=== PATIENT | male | born 1975 | race Caucasian/White ===

== ENCOUNTER 2020-07-27 00:37 | Inpatient (IN) | payer BC, SELFPAY ==
[2020-07-27] VITALS (80 sets, daily range): BP systolic 103–157; BP diastolic 57–97; PULSE 48–78; RESP 0–29; TEMP 36.2–36.7; O2SAT 91–99; BMI 39.5; BMI 40.2
--- NOTE | 2020-07-27 00:40 | XR_ITS ---
WS: [id number] Portable AP upright chest, 07/27/2020 Clinical Data: cp Comparison: PA and lateral chest, 05/25/2015. Findings: No nodules, masses or effusions are seen. The heart is normal. The pulmonary vascularity is not increased. No pneumonia or pneumothorax is seen. XR/XR chest 1V portable [id number] Impression: Negative chest.
--- NOTE | 2020-07-27 00:40 | ECG_ITS ---
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 Measurements Intervals [place] Rate: 52 P: 4 [place]: 176 QRS: 0 QRSD: 98 T: 7 QT: 412 QTc: 386 Interpretive Statements SINUS BRADYCARDIA Compared to ECG 07/27/2020 00:43:57 Sinus rhythm no longer present Myocardial infarct finding no longer present ST (T wave) deviation no longer present Electronically Signed On 07-27-2020 20:47:41 EDUCATION REPORTER by Alison Frank M.D. [id number]
--- NOTE | 2020-07-27 00:50 | W.ED.CHESTPA ---
HPI - Chest Pain General: Chief Complaint: Chest Pain Stated Complaint: chest pain Time Seen by Provider: 07/27/20 00:39 Source: patient and EMS Mode of arrival: EMS Limitations: no limitations History of Present Illness: HPI narrative: 45-year-old male has a history of diabetes high blood pressure and high cholesterol states to having chest pain at 10:00. He states that he has been having intermittent pain since then. Patient states his pain is currently an 8 out of 10 and is sharp in the center of his chest. EKG here does show ST elevation. Patient was given aspirin in route and does not have an IV at this time. MD complaint: chest pain Associated symptoms: Deny abdominal pain, dyspnea, fever(s), nausea or vomiting Review of Systems Const: Denies: fever(s), chills, body aches or change in appetite Eyes: Denies: blurry vision or eye discomfort ENMT: Denies: throat pain or dental pain Card: Reports: chest pain Resp: Denies: dyspnea GI: Denies: abdominal pain, nausea, vomiting or diarrhea : Denies: dysuria Musc: Denies: neck pain or back pain Skin/Breast: Denies: rash Neuro: Denies: headache(s) Psych: Denies: depression Joaquin/Lymph: Denies: easy bruising All/Imm: Denies: urticaria Physical Exam Const: COMMON NORMALS: patient oriented x3 and healthy appearing GENERAL APPEARANCE: in distress HENMT: COMMON NORMALS: normocephalic and atraumatic HEAD & SCALP: normocephalic and atraumatic Eye: COMMON NORMALS: Equal, round and reactive pupils present and EOMs intact bilaterally PUPIL: Yes Equal, round and reactive pupils present Neck/C-Spine: COMMON NORMALS: full ROM and supple Chest: COMMONS NORMALS: normal inspection of the chest and normal palpation of entire chest wall Resp: COMMON NORMALS: normal respiratory effort, No retractions, No use of accessory muscles and clear to auscultation bilaterally AUSCULTATION: clear to auscultation bilaterally Cardio: COMMON NORMALS: regular rate, regular rhythm and No murmurs present (Cardio) RATE: regular rate RHYTHM: regular rhythm GI: COMMON NORMALS: Normal to inspection, nondistended, normoactive bowel sounds present, Soft to palpation, non-tender and no masses PALPATION: Yes Soft to palpation Extremity: COMMON NORMALS: normal to inspection and full ROM Neuro: COMMON NORMALS: patient oriented x3, moves all extremities and no focal motor deficits Psych: COMMON NORMALS: mental status grossly normal, Normal thought process present and cooperative THOUGHT PROCESS: Normal thought process present Skin: COMMON NORMALS: no rashes or lesions noted and no wounds GENERAL SKIN EXAM: no rashes or lesions noted Course Vital Signs: Vital signs: Vital Signs Pulse Rate 73 07/27/20 00:59 Respiratory Rate 21 H 07/27/20 00:59 Blood Pressure 157/93 07/27/20 00:59 Pulse Oximetry 99 07/27/20 00:59 MDM - Chest Pain MDM Narrative: Medical decision making narrative: Gerald presents here with ST elevation myocardial infarction. Patient's pain here was relieved with nitro. 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 Patient was given heparin and Plavix. Lab Data: Labs: Lab Results 07/27/20 Range/Units 00:47 WBC 7.6 (4.0-10.0) 10^3/ uL RBC 5.46 H (4.1-5.3) 10^6/u L Hgb 16.8 H (11.7-16.6) g/dL Hct 48.9 (42.0-52.0) % MCV 89.6 (80-94) fL MCH 30.8 (28.0-34.0) pg MCHC 34.4 (30.0-36.0) g/dL RDW 11.8 L (12.1-15.1) % Plt Count 247 (130-400) 10^3/c mm MPV 11.3 H (7.4-10.4) fL Neut % (Auto) 50.1 % Lymph % (Auto) 38.0 % [place] % (Auto) 8.5 % Eos % (Auto) 2.6 % Baso % (Auto) 0.5 % Neut # (Auto) 3.78 (1.8-7.7) 10^3/u L Lymph # (Auto) 2.9 (0.8-4.8) 10^3/u L [place] # (Auto) 0.6 (0.2-0.9) 10^3/u L Eos # (Auto) 0.2 (0.0-0.8) 10^3/u L Baso # (Auto) 0.0 (0.0-0.1) 10^3/u L Nucleated RBC % (a uto) 0 % Nucleated RBCs # 0.0 /100WBC Imaging Data^: CXR: Attestation: I personally reviewed and interpreted this imaging study as follows: My impression: no acute abnormality EKG Data^: EKG 1: Attestation: I personally reviewed and interpreted this EKG as follows: EKG interpretation date: 07/27/20 EKG interpretation time: 00:43 Interpretation: nsr hr 75 st elevation OK qrs 105 qtc 395 Critical Care Time Critical Care Time: Critical Care Time: Yes Total Critical Care Time: 35 Attestation: This case had a high probability of a clinically significant, sudden, or life threatening deterioration of this patient's condition which required my full and direct attention, intervention and personal management. Discharge Plan Discharge Patient Disposition: Admitted As Inpatient Clinical Impression: ST elevation (STEMI) myocardial infarction Qualifiers: Involved coronary artery: unspecified coronary artery Qualified Code(s): I21.3 - ST elevation (STEMI) myocardial infarction of unspecified site Condition: Stable Coding Level of Care Code ED Revenue Enforcement Collection Agent for Chg Fwd Exam Comprehensive
[2020-07-27] MEDS: sodium chloride 0.9% 1,000 ML 999 ML IV (00:51)
[2020-07-27] MEDS: ondansetron 2 mg/ML SDV 2 mL 4 MG IVP (00:52)
[2020-07-27] MEDS: clopidogrel 300 mg Tablet PO ×2 (00:52→01:16)
[2020-07-27] MEDS: morphine 4 mg/mL SDV 1 mL IVP (00:54)
[2020-07-27] MEDS: heparin 5,000 unit/mL INJ 1 mL 4000 UNIT IVP (00:55)
[2020-07-27 00:56] LABS: Basophils % 0.5 %; Eosinophils # 0.2 10^3/uL (0.0-0.8); Eosinophils % 2.6 %; Hematocrit 48.9 % (42.0-52.0); Hemoglobin 16.8 g/dL (11.7-16.6); Lymphocytes # 2.9 10^3/uL (0.8-4.8); Mean Corpuscular HGB Conc 34.4 g/dL (30.0-36.0); Mean Corpuscular Hemoglobin 30.8 pg (28.0-34.0); Mean Corpuscular Volume 89.6 fL (80-94); Mean Platelet Volume 11.3 fL (7.4-10.4); Monocytes # 0.6 10^3/uL (0.2-0.9); Monocytes % 8.5 %; Neutrophils # 3.78 10^3/uL (1.8-7.7); Neutrophils % 50.1 %; Nucleated Red Blood Cells % 0 %; Platelet Count 247 10^3/cmm (130-400); Red Blood Count 5.46 10^6/uL (4.1-5.3); Red Cell Distribution Width 11.8 % (12.1-15.1); White Blood Count 7.6 10^3/uL (4.0-10.0)
[2020-07-27] MEDS: nitroglycerin 0.4 mg sublingual Tablet SUBLINGUAL (00:56)
--- NOTE | 2020-07-27 01:14 | XACV_ITS ---
Ht: 168 cm Wt: 113 kg BSA: 2.35 m2 Gender: Male : 1975 Exam Priority: Routine Procedure(s): Procedure Description: Diagnostic procedure Procedure Description: Primary percutaneous coronary intervention Procedure Description: Coronary angiogram Diagnostic Cath Status: Emergency Diagnostic Findings * LM has luminal irregularities. * CX gives rise to a large OM branch. No significant stenosis is seen in left circumflex artery system.. * RCA has luminal irregularities but no significant stenosis.. * LAD is a large vessel. * It has proximal to mid thrombotic occlusion which is culprit lesion for the acute ST elevation MA. This is right before LAD gives off a large diagonal branch. * P * roximal Left Anterior Descending Coronary Artery: Severe 100% stenosis, SAMUEL: 1 flow. PCI Status: Emergency PCI Indication: STEMI - Immediate PCI for STEMI Interventional Findings * After diagnostic pictures were taken, we attempted to engage left main artery using XB 3.5 guide catheter from right radial access. After significant difficulty, we switched access site to right femoral artery. Left main artery was engaged using XB 3.0 guide catheter. Initially we advanced 0.014 run-through guidewire and attempted to cross the lesion. However the wire was preferentially going into the large diagonal branch right after the thrombotic occlusion. After balloon inflation with 2.25 x 12 mm semicompliant balloon, we lost flow to the LAD. We used a Fielder XT guidewire to cross the thrombotic occlusion and put it in distal LAD. This was followed by placement of a 3.0 x 18 mm resolute Berkley drug-eluting stent to proximal to mid LAD. We then postdilated the stent using a 3.0 x 6 mm NC balloon. At this time final angiogram was performed that showed excellent stent expansion, SAMUEL-3 flow and no residual stenosis. Guidewire and guide catheter were removed. Sheath was sutured in place for removal later.. * Proximal Left Anterior Descending Coronary Artery: 100% stenosis treated with CHI SPRINTER [id number] BALLOON, TREK 2.25X12 RX BALLOON, CHI García BERKLEY 3.0X18 MADISON, and CHI CONTRERAS EUPHORA RX 3.65G36FI BALLOON. 0% residual stenosis, SAMUEL: 3 flow. Conclusions 1. Thrombotic occlusion of proximal to mid LAD. 2. Proximal Left Anterior Descending Coronary Artery was treated with three Balloon and Drug Eluting Stent. Recommendations * Admit to ICU. * Aspirin and Plavix for at least 1 year. * Echocardiogram. * High intensity statin therapy. * Beta-cayla and lisinopril. * We will consult hospitalist team for management of hyperglycemia. * Aggressive risk factor modification. Interventional RX Recommendation: PCI w/o planned CABG Diagnostic RX Recommendation: PCI w/o planned CABG Anticoagulation: Heparin, Tirofiban Pressures Phase:Rest AO : 193 / 105 ( 141 ) @ 8:13:00 PM 124 / 70 ( 95 ) @ 8:50:00 PM 128 / 66 ( 94 ) @ 8:50:00 PM LV : 139 / -2 / @ 8:50:00 PM 138 / -2 / @ 8:50:00 PM Valves Phase:DefaultPhase AV : 10.0 @ 3:05:12 AM 10.0 @ 3:05:12 AM AV Mean Gradient: 12.0 @ 3:05:12 AM Clinical Evaluation EBL: 5mL-10mL Procedural Details Identified patient by full name and date of as verbalized by the patient/guarantor. Does the consent match the physician's order: N/A Emergent. Accurate & Complete Informed Consent: N/A Emergent. Inpatient/Outpatient History & Physical on Chart: N/A Emergent. If H&P is completed, is and addenduem needed: N/A Emergent; If yes, is the addendum complete: N/A Emergent. Pre-op teaching completed and patient verbalized understanding. The risks, benefits, and alternatives of sedation and/or procedure were discussed by physician. The patient agrees to continue. Procedure started. Current diagnosis: STEMI. Physician arrived. Physician scrubbed in. Immediate Pre-Procedure Time Out. Correct Patient: Yes; Correct Procedure: Yes; Correct Site: Yes; Correct Patient Position: Yes; Correct Supplies: Yes; Dried Flammable Prep: N/A Emergent; Blood Products Available: N/A Emergent;. Lidocaine 1% infiltrated to the right radial. Arterial access obtained. 6 barbadian XB 3.5 guide catheter was inserted over the wire. IV Site on Arrival: 18 gauge in the right anticubital. IV Site on Arrival: 20 gauge in the left anticubital. Oxygen started at 2liters/min via nasal canula. right radial was prepped with chloroprep then draped in the usual sterile fashion. Baseline sample Acquired. HR: 65 BPM. Guide catheter out. right groin was prepped with chloroprep then draped in the usual sterile fashion. Switching to right groin due to difficult anatomy. Lidocaine 1% infiltrated to the right groin. Arterial access obtained with micropuncture set. 6 barbadian XB 3.5 guide catheter was inserted over the wire. Guide catheter out. 6 barbadian XB 3 guide catheter was inserted over the wire. [place] guidewire was advanced through the guide catheter to lesion in the prox LAD. Runthrough guidewire was advanced through the guide catheter to lesion in the prox LAD. Inventory is TR 180cm Runthrough NS extra floppy 0.014 wire. Balloon Dilation Catheter inserted through the guide catheter for support [id number] Sprinter Legend Lot#[id number]. Balloon inserted to lesion in the prox LAD. Inflation number : 1 A MDT SPRINTER [id number] BALLOON was prepped and advanced across the Prox LAD , then inflated to 14 RAS for 0:10 seconds. Inflation number: 2 The MDT SPRINTER 1.57K74PD BALLOON was reinflated across the Prox LAD, to 14 RAS for 0:10 seconds. Balloon out. Runthrough guidewire was advanced through the guide catheter to lesion in the prox LAD. Inflation number : 3 A AB TREK 2.25X12 RX BALLOON was prepped and advanced across the Prox LAD , then inflated to 12 RAS for 0:10 seconds. Balloon out. Runthrough wire removed. Fielder XT guidewire was advanced through the guide catheter to the lesion of the prox LAD. Nitro drip increased to 20mcg/min per Tay Espinal. Fielder wire removed. Trek 2.25x12 Balloon reinserted into prox LAD. Inflation number: 4 The AB TREK 2.25X12 RX BALLOON was reinflated across the Prox LAD, to 12 RAS for 0:07 seconds. Inflation number: 6 The AB TREK 2.25X12 RX BALLOON was reinflated across the Prox LAD, to 12 RAS for 0:08 seconds. nirto drip increased to 30mcg/min per Tay Espinal. Balloon out. Fielder wire inserted. Trek 2.25x12 Balloon reinserted into prox LAD. Inflation number: 8 The AB TREK 2.25X12 RX BALLOON was reinflated across the Prox LAD, to 14 RAS for 0:18 seconds. Balloon out. Trek 2.25x12 Balloon reinserted into prox LAD. Inflation number: 9 The AB TREK 2.25X12 RX BALLOON was reinflated across the Prox LAD, to 14 RAS for 0:08 seconds. Balloon out. Inflation Number : 8 A MDT R BERKLYE 3.0X18 MADISON -Lot Number# [id number] Exp date: 03/03/2022 was prepped and advanced across the Prox LAD. The stent was deployed at 14 RAS for 0:26 seconds. Family updated. Inflation number : 9 A MDT NC EUPHORA RX [id number] BALLOON was prepped and advanced across the Prox LAD , then inflated to 16 RAS for 0:21 seconds. Nitro drip is now running 20mcg/min. Inflation number: 10 The MDT NC EUPHORA RX 3.96O05KB BALLOON was reinflated across the Prox LAD, to 16 RAS for 0:16 seconds. Balloon and wire out. Nitro drip has been turned off at this time. guide catheter removed. Drawing an ACT. A CRD 5F JR4 Diagnostic Catheter was advanced over the wire and used for. A CRD 5F JR4 Diagnostic Catheter was advanced over the wire and used for Right coronary angiography. A 5 barbadian JR4 catheter in over wire. EDP Sample taken: LV 139/-2,23; HR: 67 BPM; SpO2: 99%. Pullback taken: LV 138/-3,25; AO 124/70(95); Mean: 12mmHg, Peak to Peak: 10mmHg, SEP: 22sec/min; HR: 73 BPM; SpO2: 98%. ACT results is 114. Catheter out. TR band placed. Hemostasis obtained. Sheath(s) sutured into position with 2-0 silk and sterile 4x4's and Op-site applied over the site. No oozing or signs and symptoms of hematoma noted. Procedure completed. Complications: N/A. Estimated blood loss: 5mL-10mL. A TR Band was successful obtaining hemostatsis at the Right Radial artery insertion site. A Suture was successful obtaining hemostatsis at the Right Femoral vein insertion site. Total IV fluids: 125 mL. Medication's Wasted: Lidocaine 1% = 10 mL. Medication's Wasted: Nitro = 49.6 mcg. Physician scrubbed out. [facility] Clinical Fraility Score: 3: Managing Well. Squirrel Worker Indications: ACS <= 24 hours. Chest Pain Symptom Assessment: Typical Angina Symptoms. Cardiovascular Instability: No. Post-op diagnosis: STEMI. Patient transferred by bed to ICU. Vital chart was stopped. Access Site Site: Right Radial artery Sheath Size: 6 Fr Hemostasis Method: TR Band Hemostasis Success: Successful Site: Right Femoral vein Sheath Size: 6 Fr Hemostasis Method: Suture Hemostasis Success: Successful Procedure Medications Start: 1:31 AM Stop: 1:31 AM Medication: Versed Amount: 1 mg Route: I.V. Start: 1:31 AM Stop: 1:31 AM Medication: Fentanyl Amount: 50 mcg Route: I.V. Start: 1:33 AM Stop: 1:33 AM Medication: Nitrogylcerin Amount: 200 mcg Route: I.A. Start: 1:45 AM Stop: 1:45 AM Medication: Versed Amount: 1 mg Route: I.V. Start: 1:45 AM Stop: 1:45 AM Medication: Fentanyl Amount: 50 mcg Route: I.V. Start: 1:52 AM Stop: 1:52 AM Medication: Heparin Amount: 6000 units Route: I.V. Start: 2:04 AM Stop: 2:04 AM Medication: Versed Amount: 1 mg Route: I.V. Start: 2:05 AM Stop: 2:05 AM Medication: Fentanyl Amount: 50 mcg Route: I.V. Start: 2:07 AM Stop: 2:07 AM Medication: Heparin Amount: 1000 units Route: I.V. Start: 2:14 AM Stop: 2:14 AM Medication: Nitrogylcerin Amount: 5 mcg/min Route: I.V. drip Start: 2:23 AM Stop: 2:23 AM Medication: Heparin Amount: 2000 units Route: I.V. Start: 2:27 AM Stop: 2:27 AM Medication: Aggrastat 12.5 mg/250 mL Amount: ml Route: I.V. bolus Start: 2:28 AM Stop: 2:28 AM Medication: Aggrastat 12.5 mg/250 mL Amount: 20.7 ml/hr Route: I.V. drip Start: 2:36 AM Stop: 2:36 AM Medication: Nitrogylcerin Amount: 200 mcg Route: I.C. Start: 2:51 AM Stop: 2:51 AM Medication: Heparin Amount: 5000 units Route: I.V. I, the attending physician, have reviewed and verified all procedure medications. Yes, all medications given per verbal order History/Risk Factors Hypertension: No Dyslipidemia: No Peripheral Arterial Disease (PAD): No Myocardial Infarction (MA): No Obesity: No Renal Disease: No Prior Interventions PCI: No CABG: No Valve Surgery: No Report Signatures Finalized by Rich Sommers MD on 08/07/2020 10:25 AM
[2020-07-27 01:18] LABS: Alanine Aminotransferase 189 U/L (0-41); Albumin Level 4.3 g/dL (3.5-5.2); Alkaline Phosphatase 135 IU/L (40-130); Aspartate Amino Transferase 88 U/L (0-40); Blood Urea Nitrogen 10 mg/dL (6-20); Calcium 9.8 mg/dL (8.5-10.5); Carbon Dioxide 23 mmol/L (22-29); Chloride 99 mmol/L (98-107); Globulin 3.5 g/dL (1.3-4.6); Glomerular Filtration Rate 90.4 mL/min (90-130); Glucose 387 mg/dL (65-115); Osmolality Calculated 295 mOsm/kg (285-295); Sodium 135 mmol/L (136-145); Total Bilirubin 0.5 mg/dL (0.15-1.2); Total Protein 7.8 g/dL (6.6-8.7)
[2020-07-27 01:19] LABS: Troponin(5th) Baseline 48 ng/L (0-15)
[2020-07-27 01:44] LABS: INR 0.93 (0.8-1.2)
--- NOTE | 2020-07-27 02:40 | ECG_ITS ---
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 Measurements Intervals [place] Rate: 75 P: -17 MA: 179 QRS: -7 QRSD: 105 T: -13 QT: 365 QTc: 410 Interpretive Statements SINUS RHYTHM POSSIBLE RIGHT VENTRICULAR CONDUCTION DELAY [RSR (QR) IN V1/V2] MARKED ST ELEVATION, CONSIDER ANTEROLATERAL INJURY [MARKED ST ELEVATION W/O NORMALLY INFLECTED T WAVE IN V3-V6] ACUTE MO No previous ECG available for comparison Electronically Signed On 07-27-2020 21:32:50 MANAGER CCU by Alison Frank M.D. [id number]
--- NOTE | 2020-07-27 03:03 | PM.HP ---
Providers/Chief Complaint Admitting Physician: Rich Sommers MD Primary Care Provider: Kirby Link Chief Complaint: chest pain History of Present Illness Gerald Lopez is a 45 year old male past medical history of tobacco abuse (chews )hypertension and diabetes however was not getting treated for either of conditions who presented to the hospital with 2 to 3 hours of severe substernal chest pain. According to patient pain started at 10 PM. It radiated to his jaw and arms. On arrival to emergency room EKG showed ST elevations in anterior leads. Presto Log Operator was activated. Patient was emergently taken to Presto Log Operator for coronary angiography with primary PCI. Coronary angiogram showed thrombotic occlusion of proximal to mid LAD. This was successfully treated with PCI and placement of MADISON x1. Patient's chest pain resolved and he left the Presto Log Operator in a stable condition. His blood glucose level was more than 300 at time of admission. Review of Systems General: Reports: 10 or more systems reviewed and unremarkable except in HPI and below Const: Denies: fever(s) Eyes: Denies: change in vision ENMT: Denies: throat pain Card: Reports: chest pain Resp: Denies: dyspnea GI: Reports: heartburn; Denies: abdominal pain : Denies: flank pain Musc: Denies: neck pain Skin/Breast: Denies: rash Neuro: Denies: headache(s) Psych: Denies: anxiety Endo: Denies: polyuria Joaquin/Lymph: Denies: easy bruising All/Imm: Denies: urticaria Medications/Allergies Home Medications Medication Instructions Recorded Confirmed Last Taken Type ascorbic acid (vitamin C) [Vitamin 1,000 mg PO DAILY@05 07/27/20 07/27/20 07/26/20 History C] aspirin [Aspir-81] 81 mg PO DAILY 07/27/20 07/27/20 Unknown History diltiazem HCl 30 mg PO PRN 07/27/20 07/27/20 Unknown History Allergies Allergy/AdvReac Type Severity Reaction Status Date / Time No Known Allergies Allergy Verified 07/27/20 08:39 PFSH Acute PFSH: Medical History Diabetes GERD (gastroesophageal reflux disease) Hyperlipidemia Hypertension Obesity Tobacco dependency Family History Other CAD (coronary artery disease) Social History Smoking and tobacco status: current some day smoker smokeless tobacco Smokeless tobacco user: chewing tobacco Alcohol intake: current Alcohol intake frequency: 0-2 Drinks per Day Substance/Drug Use: never Vitals/I&O/Wt Last Vital Signs Pulse 78 07/27/20 01:21 Resp 16 07/27/20 01:21 BP 121/79 07/27/20 01:21 Pulse Ox 98 07/27/20 01:21 Weight last 48 hrs Weight 245 lb Physical Exam Narrative: EXAM NARRATIVE: General exam is a white male, in no apparent distress HEENT: Atraumatic normocephalic pupils equally round. Oropharynx clear. Neck is supple no lymphadenopathy or thyromegaly Cardiovascular regular in rhythm without murmur, no S3 or S4 Lungs clear no wheezing or crackles Abdomen is soft with positive bowel sounds. No obvious organomegaly was deferred Extremities no cyanosis clubbing or edema, cap refill brisk. Vascular. Right groin site without significant hematoma. Right wrist site with bandage in place. Distal refill intact. Skin no rash Neuro no focal deficits Data : 07/27/20 07:12 07/27/20 07:12 A&P Assessment and plan (1) ST elevation (STEMI) myocardial infarction: Status: Acute Qualifiers: Involved coronary artery: unspecified coronary artery Qualified Code(s): I21.3 - ST elevation (STEMI) myocardial infarction of unspecified site (2) Transaminitis: Status: Acute (3) Hypertension: Status: Acute (4) Diabetes: Status: Acute Patient has acute anterior wall ST elevation OH and status post successful revascularization with MADISON x1. Admit to ICU. Continue aspirin and Plavix for at least 1 year. High intensity statin therapy. Beta-cayla and lisinopril. Order echocardiogram. For management of his medical issues including diabetes we will consult hospitalist team. Appreciate Dr. Gilmore's input. Attestations Medical Necessity Statement*: Care expected to cross 2 midnights. Patient presented with acute ST elevation OH and is status post a successful revascularization with MADISON x1. Coding Level of Care Code Acute Senior Loss Control Specialist for Brad Wilder Diagnoses ST elevation (STEMI) myocardial infarction I21.3 Involved coronary artery: unspecified coronary artery Transaminitis R74.01 Hypertension I10 Diabetes E11.9
[2020-07-27 05:34] LABS: Troponin 5 2HR 179.7 ng/L (0-15)
[2020-07-27 05:35] LABS: Troponin 5 2HR Delta 131.7 ABS# (0-10)
[2020-07-27] MEDS: sodium chloride 0.9% 1,000 ML 100 ML IV ×2 (06:07→17:28)
--- NOTE | 2020-07-27 06:50 | PC.NURSE ---
CCL REPORT Report called by ILDA Scott. Reported that patient received 87873 units heparin, 4 mg versed, and 200 mcg of fentanyl. 1 stent to LAD, no issues in CCL. Aggrastat running at 20.7 mL/hour and NS at 100 mL/hour. Patient sinus ori in mid to high 50s. TR band with 16 mL of air, right femoral sheath sutured in and connected to pressure bag. Patient alert and oriented and voided 1000 mL clear pale urine after coming to unit.
[2020-07-27 06:54] LABS: Partial Thromboplastin Time 220.8 SECONDS (23.9-36.7)
--- NOTE | 2020-07-27 07:03 | PC.NURSE ---
HEMATOMA Patient developed a 10 cm hematoma at 0500 when 2 mL of air removed from right TR band. By 0545 hematoma sized down to [address] Sommers notified at 0700 and gave order to discontinue the aggrastat, repeat PTT at 0800, wrap hematoma in walter wrap, and not to attempt air removal from TR band until PTT below 60. Do not remove sheath until PTT below 45. Hematoma currently still 7 cm and patient has all feeling in right hand with no tingling or numbness.
[2020-07-27 07:17] LABS: Basophils # 0.1 10^3/uL (0.0-0.1); Basophils % 0.5 %; Eosinophils # 0.1 10^3/uL (0.0-0.8); Eosinophils % 0.5 %; Hematocrit 43.5 % (42.0-52.0); Hemoglobin 14.7 g/dL (11.7-16.6); Lymphocytes # 2.2 10^3/uL (0.8-4.8); Lymphocytes % 23.5 %; Mean Corpuscular HGB Conc 33.8 g/dL (30.0-36.0); Mean Corpuscular Hemoglobin 31.2 pg (28.0-34.0); Mean Corpuscular Volume 92.4 fL (80-94); Mean Platelet Volume 11.4 fL (7.4-10.4); Monocytes # 0.5 10^3/uL (0.2-0.9); Monocytes % 5.8 %; Neutrophils # 6.35 10^3/uL (1.8-7.7); Neutrophils % 69.5 %; Nucleated Red Blood Cells % 0 %; Platelet Count 224 10^3/cmm (130-400); Red Blood Count 4.71 10^6/uL (4.1-5.3); White Blood Count 9.2 10^3/uL (4.0-10.0)
[2020-07-27 07:38] LABS: Anion Gap 13.4 (5-19); Blood Urea Nitrogen 9 mg/dL (6-20); Calcium 8.6 mg/dL (8.5-10.5); Carbon Dioxide 23 mmol/L (22-29); Chloride 101 mmol/L (98-107); Glomerular Filtration Rate 103.6 mL/min (90-130); Glucose 294 mg/dL (65-115); Osmolality Calculated 286 mOsm/kg (285-295); Potassium 4.4 mmol/L (3.5-5.1); Sodium 133 mmol/L (136-145)
[2020-07-27 07:48] LABS: Troponin 5 6HR 250.6 ng/L (0-15); Troponin 5 6HR Delta 202.6 ng/L (0-12)
--- NOTE | 2020-07-27 08:01 | PC.NURSE ---
Aggrestat infusing at shift change with a rate of 20.7 mL/hr - aggrestat stopped by this nurse at 0730 per MD r/t elevated PTT.
[2020-07-27 08:22] LABS: Glucose Point of Care 288 mg/dL (70-110)
--- NOTE | 2020-07-27 10:52 | PM.CONSULT ---
Providers/Reason For Consult Consulting Physican/Specialty*: Nuno Gilmore MD Reason for Consult*: Medical management, diabetes Attending Physician: Rich Sommers M.D Primary Care Provider: Kirby Link History of Present Illness History of Present Illness Gerald Lopez is a 45 year old male admitted through the emergency department, after presenting with discomfort in his chest, pressure, arrest occurring at 10 PM July 26. He was found to have an ST elevation myocardial infarction, and was sent directly to Cardiology Specialist. He denies any previous chest discomfort like this. He does report palpitations in the past, and a diagnosis of SVT. He reports he received some as needed diltiazem to take if it recurred but he has not done this. He reports on some blood work and screening at his employment he was told he had diabetes, hypertension and hypercholesterolemia. However he never got this treated. He reports no chest discomfort currently. I do not have his angiogram report from for my understanding he received a drug-eluting stent placed in his LAD. Approach was through the right femoral artery after approach through right radial artery. Review of Systems General: Reports: 10 or more systems reviewed and unremarkable except in HPI and below Const: Denies: fever(s) Eyes: Denies: change in vision ENMT: Denies: throat pain Card: Reports: chest pain Resp: Denies: dyspnea GI: Reports: heartburn; Denies: abdominal pain : Denies: flank pain Musc: Denies: neck pain Skin/Breast: Denies: rash Neuro: Denies: headache(s) Psych: Denies: anxiety Endo: Denies: polyuria Joaquin/Lymph: Denies: easy bruising All/Imm: Denies: urticaria Meds/Allergies Home Medications and Allergies Home Medications Medication Instructions Recorded Confirmed Last Taken Type ascorbic acid (vitamin C) [Vitamin 1,000 mg PO DAILY@05 07/27/20 07/27/20 07/26/20 History C] aspirin [Aspir-81] 81 mg PO DAILY 07/27/20 07/27/20 Unknown History diltiazem HCl 30 mg PO PRN 07/27/20 07/27/20 Unknown History Allergies Allergy/AdvReac Type Severity Reaction Status Date / Time No Known Allergies Allergy Verified 07/27/20 08:39 Current Medications Current Medications Generic Name Dose Route Start Last Admin Trade Name Freq PRN Reason Stop Dose Admin Sodium Chloride 1,000 mls @ 100 mls/hr 07/27/20 03:15 07/27/20 06:07 Sodium Chloride 0.9% IV 100 mls/hr .Q10H JAYDEN Administration Nitroglycerin 0.4 mg 07/27/20 00:40 07/27/20 00:56 Nitroglycerin 0.4 Mg Sublingual Tablet SUBLINGUAL 0.4 mg Q5M PRN Administration CHEST PAIN PFSH Acute PFSH: Medical History (Updated 07/27/20 @ 11:03 by Nuno Gilmore MD) Diabetes GERD (gastroesophageal reflux disease) Hyperlipidemia Hypertension Obesity Tobacco dependency Family History (Updated 07/27/20 @ 10:58 by Nuno Gilmore MD) Other CAD (coronary artery disease) Social History (Updated 07/27/20 @ 10:59 by Nuno Gilmore MD) Smoking and tobacco status: current some day smoker smokeless tobacco Smokeless tobacco user: chewing tobacco Alcohol intake: current Alcohol intake frequency: 0-2 Drinks per Day Substance/Drug Use: never Supplemental PFSH Information: Denies any previous surgeries Vitals/I&O/Wt Last Vital Signs Temp 97.9 F 07/27/20 07:30 Pulse 53 L 07/27/20 10:00 Resp 17 07/27/20 10:00 BP 133/81 07/27/20 10:00 Pulse Ox 95 07/27/20 10:00 07/26/20 07/27/20 07/27/20 22:59 06:59 14:59 Intake Total 240 / 240 250 / 250 Output Total 1000 / 1000 500 / 500 Balance -760 / -760 -250 / -250 Weight last 48 hrs Weight 113.081 kg Weight 111.13 kg Physical Exam Narrative: EXAM NARRATIVE: General exam is a white male, in no apparent distress HEENT: Atraumatic normocephalic pupils equally round. Oropharynx clear. Neck is supple no lymphadenopathy or thyromegaly Cardiovascular regular in rhythm without murmur, no S3 or S4 Lungs clear no wheezing or crackles Abdomen is soft with positive bowel sounds. No obvious organomegaly was deferred Extremities no cyanosis clubbing or edema, cap refill brisk. Vascular. Right groin site without significant hematoma. Right wrist site with bandage in place. Distal refill intact. Skin no rash Neuro no focal deficits Data Other Data: Other data: Initial EKG demonstrated sinus rhythm with profound ST elevation over the anterior precordial leads as well as lateral leads and reciprocal changes inferiorly. Chest x-ray by my read demonstrates no infiltrate LFTs demonstrated elevated alkaline phosphatase at 135, ALT of 189, AST of 88, bilirubin 0.5. Calcium normal at 8.6. Troponin elevated with significant delta ultimately with delta of 131 and 6-hour troponin of 202. A&P Assessment and plan (1) ST elevation (STEMI) myocardial infarction: Intervention with LAD drug-eluting stent by cardiology earlier this morning Plavix, aspirin, beta-cayla, MARIANO inhibitor initiated post cardiac care as appropriate. Status: Acute Qualifiers: Involved coronary artery: unspecified coronary artery Qualified Code(s): I21.3 - ST elevation (STEMI) myocardial infarction of unspecified site (2) Transaminitis: Check hepatitis panel Other possibilities include fatty liver. Some AST elevation may be secondary to myocardial infarction Status: Acute (3) Diabetes: Sliding scale insulin currently Discharge regimen likely Metformin and Januvia, although Metformin initiation will have to be delayed 72 hours following him receiving radiological dye. Check TSH Check urinalysis, looking for significant proteinuria Status: Inactive (4) Hyperlipidemia: Statin was initiated Status: Inactive (5) Hypertension: Metoprolol and lisinopril were initiated Status: Inactive (6) Tobacco dependency: Counseled Status: Inactive (7) Obesity: Counseled Status: Inactive Additional A&P Information Full code Lovenox will suffice for DVT prophylaxis to be initiated tomorrow if hospitalization is continued. Consult Attestations Medical Necessity Statement: As per primary Time Spent in Patient Care: Greater than 35 minutes Coding Level of Care Code Acute Medical Laboratory Assistant for [facility] Fwd Diagnoses ST elevation (STEMI) myocardial infarction I21.3 Involved coronary artery: unspecified coronary artery Transaminitis R74.01 Diabetes E11.9 Hyperlipidemia E78.5 Hypertension I10 Tobacco dependency F17.200 Obesity E66.9
--- NOTE | 2020-07-27 10:58 | USCV_ITS ---
Gerald Lopez Age: 45 Gender: M : 1975 Exam Date: 07/27/2020 15:08 Ordering Phys: Rich Sommers M.D ([email or web address]) Technologist: Leah Harrington Exam Location: [facility] [place] Indication: STEMI BP: 133 / 81 HR: 53 Rhythm: Sinus Technical Quality: Adequate MEASUREMENTS (Male / Female) Normal Values 2D ECHO LV Diastolic Diameter PLAX 5.2 cm 4.2 - 5.9 / 3.9 - 5.3 cm LV Systolic Diameter PLAX 4.2 cm LV Chamber Size 2.4 cm IVS Diastolic Thickness 1.2 cm 0.6 - 1.0 / 0.6 - 0.9 cm IVS Systolic Thickness 1.6 cm LVPW Diastolic Thickness 1.4 cm 0.6 - 1.0 / 0.6 - 0.9 cm LVPW Systolic Thickness 1.6 cm RV Chamber Size 2.6 cm LVOT Diameter 2.0 cm LV Ejection Fraction 2D Teich 39.1 % LV Ejection Fraction MOD 2C 43.8 % LV Ejection Fraction 2C AL 45.1 % LA Diameter 3.0 cm LA Width 3.4 cm LA Height 4.9 cm RA Width 2.7 cm RA Height 4.3 cm Aorta at Sinotubular Diameter 2.7 cm M-MODE LV Diastolic Diameter MM 6.0 cm 4.2 - 5.9 / 3.9 - 5.3 cm LV Systolic Diameter MM 3.3 cm LV Ejection Fraction MM Teich 74.9 % IVS Diastolic Thickness MM 1.6 cm 0.6 - 1.0 / 0.6 - 0.9 cm IVS Systolic Thickness MM 2.6 cm LVPW Diastolic Thickness MM 1.3 cm 0.6 - 1.0 / 0.6 - 0.9 cm LVPW Systolic Thickness MM 2.1 cm Aortic Annulus Diameter 3.2 cm LA Ao Ratio MM 1.0 MV E Point Septal Separation 0.3 cm DOPPLER AV Peak Velocity 188.0 cm/s LVOT Peak Velocity 117.0 cm/s AV Area Cont Eq vti 2.1 cm squared AV Area Cont Eq pk 1.9 cm squared MV Area PHT 4.6 cm squared Mitral E to A Ratio 1.4 MV E' Velocity 63.0 cm/s Mitral E to MV E' Ratio 7.1 Mitral E to LV E' Lateral Ratio 6.0 Mitral E to LV E' Septal Ratio 8.8 TR Peak Velocity 188.8 cm/s TR Peak Gradient 14.3 mmHg TV Peak E Velocity 73.0 cm/s Right Atrial Pressure 3.0 mmHg Pulmonary Artery Systolic Pressu 17.3 mmHg PV Peak Velocity 89.0 cm/s RV Acceleration Time 0.1 s RV Ejection Time 0.4 s RV AcT/ET 0.2 FINDINGS Left Ventricle This is limited quality echocardiogram. Normal left ventricular size. Grossly LV systolic function is mildly reduced with EF of 40 to 45%. Regional wall motion abnormalities cannot be ruled out because of limited visualization. Diastolic function is normal. Right Ventricle The right ventricle is normal in size and function. Right Atrium The right atrium is normal in size. Left Atrium The left atrium is normal in size. Mitral Valve Structurally normal mitral valve without significant stenosis or prolapse. There is no mitral regurgitation. Aortic Valve Structurally normal aortic valve without significant sclerosis or stenosis. There is no aortic regurgitation. Tricuspid Valve Structurally normal tricuspid valve without significant stenosis or regurgitation. Insufficient TR jet to calculate RVSP. Pulmonic Valve Not well-visualized. Pericardium Normal pericardium without effusion. Aorta Normal ascending aorta dimension. CONCLUSIONS This is limited quality echocardiogram because of poor ultrasonic windows. LV systolic function is mildly reduced with EF 40 to 45%. Regional wall motion abnormalities cannot be assessed because of limited visualization. Diastolic function is normal. No significant valvular heart disease is noted. No comparison studies are available. Rich Sommers MD (Electronically Signed) Final Date: 29 July 2020 19:05 S
[2020-07-27 11:34] LABS: Partial Thromboplastin Time 73.8 SECONDS (23.9-36.7)
[2020-07-27 11:42] LABS: Glucose Point of Care 244 mg/dL (70-110)
[2020-07-27 11:43] LABS: Thyroid Stimulating Hormone 4.32 uIU/mL (0.27-4.20)
[2020-07-27] MEDS: lisinopril 10 mg Tablet PO (12:19)
[2020-07-27 13:22] LABS: Hepatitis A Antibody IgM Non-Reactive (Nonreactive); Hepatitis B Core IgM Non-Reactive (Nonreactive); Hepatitis B Surface Antigen Non-Reactive (Nonreactive); Hepatitis C Virus Antibody Non-Reactive (Nonreactive)
[2020-07-27 13:51] LABS: Add Urine Microscopic? YES; Bilirubin Urine Neg (Negative); Blood Urine 2+ (Negative); Glucose Urine UA 4+ (Normal); Ketones Urine Negative (Negative); Leukocyte Esterase Urine Negative (Negative); Nitrate Urine Negative (Negative); Protein Urine Neg (Negative); Specific Gravity, Urine 1.015 (1.005-1.030); Urine Appearance Clear (CLEAR); Urine Color Yellow (Yellow); Urobilinogen Urine Norm (Negative); pH Urine 5 (5-7)
[2020-07-27 13:54] LABS: Add Urine Culture? Yes; Bacteria Urine TRACE /hpf; RBC Urine 50-80 /hpf (0-2)
[2020-07-27 14:27] LABS: Partial Thromboplastin Time 24.2 SECONDS (23.9-36.7)
[2020-07-27 14:30] LABS: Estmated Average Glucose 214; Hemoglobin A1C 9.1 % (4.0-6.0)
[2020-07-27] MEDS: fentaNYL 50 mcg/mL INJ 2mL IVP (17:27)
[2020-07-27 18:21] LABS: Glucose Point of Care 195 mg/dL (70-110)
--- NOTE | 2020-07-27 19:23 | PC.NURSE ---
Femoral sheath removed at 1750- pressure held for 20 minutes until 1810. No hematoma noted. Vitals stable. No c/o voiced.
--- NOTE | 2020-07-27 19:27 | PC.NURSE ---
TR band air removal: 1610- 2 ml 1625- 2 ml 1640- 2 ml 1725- 3 ml 1843- 3 ml no hematoma noted, denies c/o. Reported to next shift nurse the remaining 6 ml of air.
[2020-07-27] MEDS: clopidogrel 75 mg Tablet PO (21:22)
[2020-07-27] MEDS: atorvastatin 40 mg Tablet 80 MG PO (21:23)
[2020-07-27] MEDS: aspirin 81 mg EC Tablet PO (21:23)
[2020-07-27 21:33] LABS: Glucose Point of Care 202 mg/dL (70-110)
[2020-07-27] MEDS: alum-mag-hydroxide-sime 30 mL UDC PO (22:31)
[2020-07-28] VITALS (47 sets, daily range): BP systolic 101–143; BP diastolic 53–98; PULSE 50–79; RESP 0–23; TEMP 36.6–37; O2SAT 92–98
[2020-07-28] MEDS: acetaminophen 325 mg Tablet 650 MG PO (00:56)
--- NOTE | 2020-07-28 07:16 | PC.NURSE ---
TR BAND REMOVAL Remaining 3 mL of air removed from TR band at 2100. Site covered with guaze and tegaderm. Minor swelling and bruising from previous hematoma, not noted to be worse or larger. Patient instructed on extremity restrictions and complains of no pain. No bleeding or drainage noted since removal.
--- NOTE | 2020-07-28 07:18 | PC.NURSE ---
AMBULATION Patient able to ambulate at 0000, 6 hours post sheath removal. Patient up to side of bed and to ambulate in the hallways. Patient complains of sensitivity, but no bruising, swelling, or extreme pain. Site supple. Patient in room to bathe himself and is steady on his feet.
--- NOTE | 2020-07-28 07:19 | PC.NURSE ---
SHIFT SUMMARY Patient alert and oriented and expresses excitement to go home. Patient had 675 mL out of urinal and slept most of shift after bath and ambulation at midnight. Tylenol given for back pain. NS at 100 mL/hour. Afebrile.
[2020-07-28 07:55] LABS: Glucose Point of Care 229 mg/dL (70-110)
[2020-07-28 08:49] LABS: Basophils % 0.4 %; Eosinophils # 0.2 10^3/uL (0.0-0.8); Eosinophils % 2.2 %; Hematocrit 44.8 % (42.0-52.0); Hemoglobin 14.9 g/dL (11.7-16.6); Lymphocytes # 1.9 10^3/uL (0.8-4.8); Lymphocytes % 23.2 %; Mean Corpuscular HGB Conc 33.3 g/dL (30.0-36.0); Mean Corpuscular Hemoglobin 30.5 pg (28.0-34.0); Mean Corpuscular Volume 91.8 fL (80-94); Mean Platelet Volume 11.7 fL (7.4-10.4); Monocytes # 0.6 10^3/uL (0.2-0.9); Monocytes % 7.4 %; Neutrophils # 5.34 10^3/uL (1.8-7.7); Neutrophils % 66.6 %; Nucleated Red Blood Cells % 0 %; Platelet Count 207 10^3/cmm (130-400); Red Blood Count 4.88 10^6/uL (4.1-5.3); Red Cell Distribution Width 11.9 % (12.1-15.1)
[2020-07-28] MEDS: lisinopril 10 mg Tablet PO (09:03)
[2020-07-28] MEDS: clopidogrel 75 mg Tablet PO (09:03)
[2020-07-28] MEDS: aspirin 81 mg EC Tablet PO (09:04)
[2020-07-28 09:06] LABS: Blood Urea Nitrogen 10 mg/dL (6-20); Calcium 8.9 mg/dL (8.5-10.5); Carbon Dioxide 26 mmol/L (22-29); Chloride 101 mmol/L (98-107); Glomerular Filtration Rate 103.6 mL/min (90-130); Glucose 275 mg/dL (65-115); Osmolality Calculated 289 mOsm/kg (285-295); Sodium 135 mmol/L (136-145)
[2020-07-28] MEDS: metoprolol tartrate 25 mg Tablet PO ×2 (09:07→20:10)
[2020-07-28 11:37] LABS: Glucose Point of Care 262 mg/dL (70-110)
--- NOTE | 2020-07-28 13:41 | P.PN_ITS ---
Subjective Subjective: Interval history: Gerald reports he is doing well. No specific concerns. Medications: Reviewed: Yes Vitals/I&O/Wt Last Vital Signs Temp 97.9 F 07/28/20 10:00 Pulse 69 07/28/20 10:30 Resp 19 H 07/28/20 10:30 BP 122/80 07/28/20 11:00 Pulse Ox 96 07/28/20 06:00 07/27/20 07/28/20 07/28/20 22:59 06:59 14:59 Intake Total 1000 / 1750 120 / 1870 1500 / 1500 Output Total 1575 / 2825 Balance -575 / -1075 120 / -955 1500 / 1500 Weight last 48 hrs Weight 113.081 kg Weight 111.13 kg Physical Exam Narrative: EXAM NARRATIVE: General exam is a white male, in no apparent distress Cardiovascular regular in rhythm without murmur, no S3 or S4 Lungs clear no wheezing or crackles Abdomen is soft with positive bowel sounds. No obvious organomegaly Extremities no cyanosis clubbing or edema, cap refill brisk. Vascular. Right groin site without significant hematoma. Right wrist site with bandage in place. Distal refill intact. Data : 07/28/20 08:40 07/28/20 08:40 A&P Assessment and plan (1) ST elevation (STEMI) myocardial infarction: Intervention with LAD drug-eluting stent by cardiology July 27 Plavix, aspirin, beta-cayla, MARIANO inhibitor initiated post cardiac care as appropriate. Status: Acute Qualifiers: Involved coronary artery: unspecified coronary artery Qualified Code(s): I21.3 - ST elevation (STEMI) myocardial infarction of unspecified site (2) Transaminitis: Hepatitis panel negative Other possibilities include fatty liver. Some AST elevation may be secondary to myocardial infarction Status: Acute (3) Diabetes: Sliding scale insulin currently. Change to moderate sliding scale. Discharge regimen likely Metformin and Januvia, although Metformin initiation will have to be delayed 72 hours following him receiving radiological dye. Januvia 100 mg a day will be started tomorrow. Diabetic education. Check TSH not significantly elevated A1c elevated as expected Check urinalysis, did not show proteinuria Status: Acute (4) Hyperlipidemia: Statin was initiated Status: Inactive (5) Hypertension: Metoprolol and lisinopril were initiated Status: Inactive (6) Tobacco dependency: Counseled Status: Inactive (7) Obesity: Counseled Status: Inactive Additional A&P Information Full code Lovenox will suffice for DVT prophylaxis to be initiated tomorrow if hospitalization is continued. Attestations Medical Necessity Statement*: As per primary Coding Level of Care Code Acute Sales Operations Lead for [facility] Diagnoses ST elevation (STEMI) myocardial infarction I21.3 Involved coronary artery: unspecified coronary artery Transaminitis R74.01 Diabetes E11.9 Hyperlipidemia E78.5 Hypertension I10 Tobacco dependency F17.200 Obesity E66.9
--- NOTE | 2020-07-28 15:03 | PC.RESP ---
SMOKING CESSATION INFORMATION SENT TO PATIENT.
--- NOTE | 2020-07-28 16:34 | PM.PN ---
Subjective Subjective: Interval history: Patient is doing well. No chest pain, shortness of breath or palpitations. ECHO shows midly reduced systolic function.Femoral access site is normal. Had a radial hematoma that is resolving. Vitals/I&O/Wt Last Vital Signs Temp 97.9 F 07/28/20 10:00 Pulse 61 07/28/20 16:30 Resp 18 07/28/20 16:30 BP 125/72 07/28/20 16:30 Pulse Ox 96 07/28/20 06:00 07/28/20 07/28/20 07/28/20 06:59 14:59 22:59 Intake Total 120 / 1870 2150 / 2150 Balance 120 / -955 2150 / 2150 Weight last 48 hrs Weight 249 lb 4.8 oz Weight 245 lb Physical Exam Narrative: EXAM NARRATIVE: General No apparent distress HEENT: Atraumatic normocephalic pupils equally round. Oropharynx clear. Neck is supple no lymphadenopathy or thyromegaly Cardiovascular regular in rhythm without murmur, no S3 or S4 Lungs clear no wheezing or crackles Abdomen is soft with positive bowel sounds. No obvious organomegaly was deferred Extremities no cyanosis clubbing or edema, cap refill brisk. Vascular. Right groin site without significant hematoma. Right radial hematoma is improving. Skin no rash Neuro no focal deficits Data : 07/28/20 08:40 07/28/20 08:40 Micro: Microbiology 07/27/20 12:15 Urine Culture - Preliminary Urine,Clean Catch A&P Assessment and plan (1) ST elevation (STEMI) myocardial infarction: Status: Acute Qualifiers: Involved coronary artery: unspecified coronary artery Qualified Code(s): I21.3 - ST elevation (STEMI) myocardial infarction of unspecified site (2) Transaminitis: Status: Acute (3) Hypertension: Status: Acute (4) Diabetes: Status: Acute Patient has acute anterior wall ST elevation ME and status post successful revascularization with MADISON x1 to LAD. He is stable to be transferred out of the ICU today Continue aspirin and Plavix for at least 1 year. High intensity statin therapy. Beta-cayla and lisinopril. Order echocardiogram. Dr Gilmore following for managment of medical issues. Appreciate his recommendation. Attestations Medical Necessity Statement*: Care expected to cross 2 midnights. Patient is status post PCI after acute ST elevation ME Coding Level of Care Code Acute Mathematician Research for [facility] Fwd Diagnoses ST elevation (STEMI) myocardial infarction I21.3 Involved coronary artery: unspecified coronary artery Transaminitis R74.01 Hypertension I10 Diabetes E11.9
--- NOTE | 2020-07-28 17:00 | PC.NURSE ---
Assumed care of patient in room 107. at bedside.
[2020-07-28 19:51] LABS: Glucose Point of Care 217 mg/dL (70-110)
[2020-07-28] MEDS: ALPRAZolam 0.25 mg Tablet PO (20:09)
[2020-07-28] MEDS: atorvastatin 40 mg Tablet 80 MG PO (20:09)
[2020-07-28] MEDS: temazepam 15 mg Capsule PO (20:10)
[2020-07-29] VITALS (11 sets, daily range): BP systolic 113–116; BP diastolic 55–70; PULSE 46–56; RESP 12–19; TEMP 36.2; O2SAT 94
[2020-07-29 06:37] LABS: Glucose Point of Care 181 mg/dL (70-110)
--- NOTE | 2020-07-29 09:09 | P.DS_ITS ---
Discharge Providers Date of Admission: 07/27/20 03:10 Date of Discharge: July 29, 2020 Attending Provider at Admission: Rich Sommers M.D Attending Provider at Discharge: Rich Sommers M.D Primary Care Provider: Kirby Link Diagnoses at Discharge Discharge Diagnosis (1) ST elevation (STEMI) myocardial infarction: Status: Acute Qualifiers: Involved coronary artery: unspecified coronary artery Qualified Code(s): I21.3 - ST elevation (STEMI) myocardial infarction of unspecified site (2) Transaminitis: Status: Acute (3) Hypertension: Status: Acute (4) Diabetes: Status: Acute Reason for Visit Reason for Visit: chest pain Brief History: 45 year old male past medical history of tobacco abuse (chews )hypertension and diabetes however was not getting treated for either of conditions who presented to the hospital with 2 to 3 hours of severe substernal chest pain. According to patient pain started at 10 PM. It radiated to his jaw and arms. On arrival to emergency room EKG showed ST elevations in anterior leads. Gallery Director was activated. Patient was emergently taken to Gallery Director for coronary angiography with primary PCI. Hospital Course Hospital Course 45 year old male past medical history of tobacco abuse (chews )hypertension and diabetes however was not getting treated for either of conditions who presented to the hospital with 2 to 3 hours of severe substernal chest pain. According to patient pain started at 10 PM. It radiated to his jaw and arms. On arrival to emergency room EKG showed ST elevations in anterior leads. Gallery Director was hrai chadwick. Patient was emergently taken to Gallery Director for coronary angiography with primary PCI. Coronary angiogram showed thrombotic occlusion of proximal to mid LAD. This was successfully treated with PCI and placement of MADISON x1. Patient's chest pain resolved and he left the Gallery Director in a stable condition. His blood glucose level was more than 300 at time of admission. He had known about elevated blood glucose in the past however was not taking any medications. Hospitalist team was consulted to help with management of diabetes. His HbA1c was 9.1. Echocardiogram performed next day showed mildly reduced LV systolic function. His femoral access site was normal. Patient stayed stable and was discharged home on aspirin, Plavix, lisinopril, Metformin, sitagliptin, metoprolol and atorvastatin. He will follow up with cardiology clinic. Physical Exam Narrative: EXAM NARRATIVE: GENERAL: Patient is alert, awake and oriented x3. [] NECK: No jugular vein distension. [] HEENT: No cyanosis. No icterus. No pallor. [] HEART: Regular S1 and S2. No murmur, rub or gallop. [] LUNGS: Clear to auscultate bilaterally. [] ABDOMEN: Soft, nontender and nondistended. Positive bowel sounds. No guarding, rebound or tenderness. [] CENTRAL NERVOUS SYSTEM: Grossly nonfocal. [] EXTREMITIES: Lower extremities with no edema bilaterally. Pulses palpable in the lower extremities, both dorsalis pedis and posterior tibial. 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 Stat Exams 07/27/20 01:14 Taken Comprehensive Met abolic Panel Routi ne Lab 07/29/20 08:07 Ordered CV echo complete* [id number] Routine Ultrasound 07/27/20 10:58 Taken Labs from last 24 hours 07/29/20 07/28/20 07/28/20 06:29 19:47 11:34 Sodium Potassium Anion Gap Glucose POC Glucose 181 H 217 H 262 H 07/28/20 08:40 Sodium 135 L Potassium 4.0 Anion Gap 12.0 Glucose 275 H POC Glucose Vitals: Last Vital Signs Temp 97.1 F L 07/29/20 07:00 Pulse 49 L 07/29/20 07:00 Resp 19 H 07/29/20 07:00 BP 116/70 07/29/20 07:00 Pulse Ox 94 07/29/20 07:00 Discharge Plan Discharge Patient Disposition: Home Condition: Stable Prescriptions: New atorvastatin 40 mg Tablet 80 mg PO BEDTIME Qty: 90 RF: 3 clopidogrel 75 mg Tablet 75 mg PO DAILY Qty: 90 RF: 3 aspirin 81 mg Tablet,Delayed Release (Dr/Ec) 81 mg PO DAILY Qty: 90 RF: 3 lisinopril 10 mg Tablet 10 mg PO DAILY Qty: 90 RF: 3 metoprolol tartrate 25 mg Tablet 25 mg PO BID@0900,2100 Qty: 120 RF: 3 Januvia 100 mg Tablet 100 mg PO DAILY Qty: 60 RF: 3 metformin 500 mg tablet 500 mg PO BID Qty: 120 RF: 3 Continued Vitamin C 500 mg Tablet 1,000 mg PO DAILY@05 RF: 0 Discontinued aspirin [Aspir-81] 81 mg Tablet,Delayed Release (Dr/Ec) 81 mg PO DAILY RF: 0 diltiazem HCl 30 mg tablet 30 mg PO PRN RF: 0 Discharge Orders: Discharge Order (Routine); Ordered 07/29/20 Ordered By: Rich Sommers Referrals: Kirby Link [Primary Care Provider] - 2 weeks ([facility] [place] to schedule an follow-up appointment in 2 weeks. If you haven't heard from them by Friday afternoon. Please call ) Rich Sommers M.D [Physician] - 1 month ([facility] will contact you to schedule an follow-up appointment with Dr. Sommers in 1 month. If you haven't heard from them Friday afternoon. Please call ) Heike Maldonado FNP [Nurse Practitioner] - 7-10 days ([facility] will contact to schedule an follow-up appointment with Heike Maldonado in 7 to 10 days. If you haven't heard from them by Friday afternoon. Please call ) Discharge Diet: Diabetic Discharge Activity: Increase activity as tolerated Patient Instructions: Metoprolol (By mouth), Lisinopril (By mouth), Metformin (By mouth), Atorvastatin (By mouth), Clopidogrel (By mouth), Sitagliptin (By mouth), Left Heart Catheterization (DC), Coronary Angioplasty (DC), Hypertension (DC), Post Angiogram Home Care Instructions Activity Restrictions/Additional Instructions: Please do not lift anything heavier than 5 pounds for the next 5 days Discharge Attestations Time Spent in Discharge Care*: greater than 30 min Quality Metrics Clinical Quality Measures During this hospital stay, did patient experience: None Coding Level of Care Code Acute Imagery Intelligence for [facility] Diagnoses ST elevation (STEMI) myocardial infarction I21.3 Involved coronary artery: unspecified coronary artery Transaminitis R74.01 Hypertension I10 Diabetes E11.9
[2020-07-29] MEDS: lisinopril 10 mg Tablet PO (09:34)
[2020-07-29] MEDS: metoprolol tartrate 25 mg Tablet PO (09:34)
[2020-07-29] MEDS: clopidogrel 75 mg Tablet PO (09:34)
[2020-07-29] MEDS: aspirin 81 mg EC Tablet PO (09:34)
[2020-07-29] MEDS: sitagliptin 100 mg Tablet PO (09:40)
[2020-07-29 09:54] LABS: Alanine Aminotransferase 110 U/L (0-41); Albumin Level 3.9 g/dL (3.5-5.2); Alkaline Phosphatase 80 IU/L (40-130); Aspartate Amino Transferase 44 U/L (0-40); Blood Urea Nitrogen 13 mg/dL (6-20); Calcium 9.2 mg/dL (8.5-10.5); Carbon Dioxide 27 mmol/L (22-29); Chloride 101 mmol/L (98-107); Globulin 3.3 g/dL (1.3-4.6); Glomerular Filtration Rate 90.4 mL/min (90-130); Glucose 196 mg/dL (65-115); Osmolality Calculated 290 mOsm/kg (285-295); Sodium 137 mmol/L (136-145); Total Bilirubin 0.6 mg/dL (0.15-1.2); Total Protein 7.2 g/dL (6.6-8.7)
--- NOTE | 2020-07-29 10:54 | PC.CHAP ---
Pastoral Care Encounter/Spiritual Assessment Type of Contact [] Declined wood floor layer visit [] Patient/Family/Request visit [] Outpatient visit [] Follow-up visit [] Physician referral [] Code/Alert [] Routine visit [] Staff referral [] Actively dying [XX] Patient sleeping [] Family support [] [] Out of room [] Palliative care [] [] Receiving care in room [] Pre-surgical visit [] Trauma [] Long length of stay [] ICU visit [] Other: Relational/Emotional Strength [] Patient feels connected with others/family/visitors/staff [] Distress [] Loneliness/isolation [] Abandonment Spirituality of Patient [] Person of [place] [] Attends Faith of their [place] [] Believes in Prayer [] Reads Bible or Church materials [] There are Spiritual issues to be addressed Kitchen Supervisor Interventions [] Prayer [] Active listening [] Non-anxious presence [] Spiritual/emotional support [] Crisis/trauma care [] Spiritual counseling [] Bereavement support [] Provided bereavement packet [] Provided Bible/devotional materials [] Provided toy/stuffed animal, coloring book to patient or family member [] Provided Communion [] Anointing/[place] [] Salvation [] Completed spiritual assessment [] Other: Impact on Illness or Injury [] Angry [] Fearful [] Anxious [] Often cries [] Exhaustion [] Unable to work [] Unable to attend yazidi [] Unable to walk/stand [] Unable to read [] Unable to drive [] Unable to eat/drink [] Unable to sleep [] Unable to be with family [] Patient intubated [] Other: Summary Time spent with patient
[2020-07-29 13:35] LABS: Glucose Point of Care 235 mg/dL (70-110)
== END 2020-07-29 12:15 | disposition home or self-care (01) | DRG 247 ==
LOC: ER 01:21 → ICU 03:17 → CSU 07-28 16:45
PROVIDERS: Internal Medicine; Admitting Provider Internal Medicine; Emergency Provider Emergency Medicine; PCP Physician Assistant Medical; Visit Provider Internal Medicine
PROC: 027034Z Dilation of Coronary Artery, One Artery with Drug-eluting Intraluminal Device, Percutaneous Approach (ICD-10-PCS; principal; 2020-07-27 01:00)
PROC: 027034Z Dilation of Coronary Artery, One Artery with Drug-eluting Intraluminal Device, Percutaneous Approach (ICD-10-PCS; 2020-07-27 01:00)
DX: I21.09 ST elevation (STEMI) myocardial infarction involving other coronary artery of anterior wall (principal); Z68.41 Body mass index [BMI] 40.0-44.9, adult; I47.1 Supraventricular tachycardia; F17.220 Nicotine dependence, chewing tobacco, uncomplicated; E11.9 Type 2 diabetes mellitus without complications; K21.9 Gastro-esophageal reflux disease without esophagitis; E78.5 Hyperlipidemia, unspecified; I10 Essential (primary) hypertension; E66.9 Obesity, unspecified; I25.10 Atherosclerotic heart disease of native coronary artery without angina pectoris; K76.0 Fatty (change of) liver, not elsewhere classified
CPT/HCPCS: 12345; 36415; 36416; 71045; 80048; 80053; 80074; 81001; 82962; 83036; 84443; 84484; 85025; 85347; 85610; 85730; 87086; 93005; 93306; 93452; 96372; 99282; C1725; C1769; C1874; C1887; C1894; C9606; J1644; J1815; J2250; J2270; J2405; J3010; J3246; J3490; J7030; Q9967

== ENCOUNTER → 2020-08-09 15:55 | Outpatient (BNVA) | payer BC, SELFPAY | PROVIDERS: PCP Physician Assistant Medical; Visit Provider Nurse Practitioner Family | DX: I25.119 Atherosclerotic heart disease of native coronary artery with unspecified angina pectoris (principal); I10 Essential (primary) hypertension | CPT/HCPCS: 80048 ==

== ENCOUNTER → 2021-09-05 16:28 | Outpatient (BNVA) | payer BC, SELFPAY | PROVIDERS: Visit Provider Nurse Practitioner Family | DX: I25.119 Atherosclerotic heart disease of native coronary artery with unspecified angina pectoris (principal); E11.9 Type 2 diabetes mellitus without complications; I10 Essential (primary) hypertension | CPT/HCPCS: 80048; 83036; 85025 ==

== ENCOUNTER 2022-09-01 18:51 | Emergency (ER) | payer BC, SELFPAY ==
[2022-09-01 18:59] VITALS: BMI 39.5
[2022-09-01 19:01] VITALS: BP 114/79; PULSE 78; RESP 18; TEMP 36.2; O2SAT 95
--- NOTE | 2022-09-01 19:06 | ECG_ITS ---
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 Measurements Intervals [place] Rate: 82 P: 61 LA: 176 QRS: 4 QRSD: 87 T: 43 QT: 329 QTc: 385 Interpretive Statements SINUS RHYTHM Compared to ECG 07/27/2020 03:59:47 Sinus bradycardia no longer present Electronically Signed On 09-02-2022 8:52:37 [employer] by Rich Sommers M.D. [id number]
--- NOTE | 2022-09-01 19:11 | XRR_ITS ---
PROCEDURE INFORMATION: Exam: XR Chest Exam date and time: 09/01/2022 7:49 PM Age: 47 years old Clinical indication: Pain; Chest pressure; Additional info: Chest pain TECHNIQUE: Imaging protocol: Radiologic exam of the chest. Views: 1 view. COMPARISON: CR XR chest 1V portable [id number] 07/27/2020 12:55 AM FINDINGS: Lungs: Lungs are clear bilaterally. Pleural spaces: No pleural effusion. No pneumothorax. Heart/Mediastinum: The cardiac silhouette and mediastinal contours are unremarkable. Bones/joints: Unremarkable for age. XR/XR chest 1V portable [id number] IMPRESSION: Negative chest radiograph.
--- NOTE | 2022-09-01 19:24 | ED_ITS ---
HPI - Chest Pain General: Chief Complaint: Chest Pain Stated Complaint: chest pain, pressure, jaw pain, took nitro Time Seen by Provider: 09/01/22 19:11 History of Present Illness: Patient is a 47-year-old male with a history of coronary artery disease with cardiac stent in 2020 with also history of hypertension and diabetes and hyperlipidemia who presents with substernal chest pain that started around 2 hours before arrival. He describes the pain as a pressure like pain substernally. He did have some mild radiation of pain into his back. He felt some dyspnea at that time. His symptoms lasted for about 30 to 45 minutes and then have improved. He states that he feels much better now and has no real complaints currently. He rates his discomfort at a 1 out of 10 and states that he would prefer to go home. He denies any fevers or chills. No recent cough or shortness of breath. He denies any pleuritic pain. He states his symptoms are better if he is standing. Associated symptoms: Deny abdominal pain, diaphoresis, fever(s), nausea, palpitations, syncope or vomiting Review of Systems 2 Const: Denies: fever(s), malaise or diaphoresis Card: Denies: palpitations or syncope GI: Denies: abdominal pain, nausea or vomiting Skin/Breast: Denies: rash Neuro: Denies: headache(s) or confusion PFSH ED 2 PFSH: Medical History Coronary artery disease Diabetes GERD (gastroesophageal reflux disease) Hyperlipidemia Hypertension Obesity ST elevation (STEMI) myocardial infarction Tobacco dependency Family History Other CAD (coronary artery disease) Social History Smoking and tobacco status: current every day smoker (chew) smokeless tobacco Smokeless tobacco user: chewing tobacco Alcohol intake: current Alcohol intake frequency: 0-2 Drinks per Day Physical Exam Const: COMMON NORMALS: no acute distress, alert and well nourished GENERAL APPEARANCE: cooperative, comfortable and well kempt; not in distress ORIENTATION/CONSCIOUSNESS: Yes awake HENMT: COMMON NORMALS: normocephalic and atraumatic HEAD & SCALP: normocephalic and atraumatic Eye: COMMON NORMALS: EOMs intact bilaterally Neck/C-Spine: GENERAL: Yes normal visual inspection and No tracheal deviation Chest: COMMONS NORMALS: normal inspection of the chest Resp: COMMON NORMALS: normal respiratory effort, No retractions and No use of accessory muscles Cardio: COMMON NORMALS: regular rhythm and Peripheral pulses 2+ throughout RHYTHM: regular rhythm PERIPHERAL PULSES: Peripheral pulses 2+ throughout GI: COMMON NORMALS: Normal to inspection, nondistended, normoactive bowel sounds present, Soft to palpation and non-tender PALPATION: Yes Soft to palpation Extremity: COMMON NORMALS: normal to inspection, full ROM and no pedal edema Neuro: COMMON NORMALS: no focal motor deficits SENSORIUM/ORIENTATION: Yes alert Psych: APPEARANCE: Yes well kempt Course Vital Signs: Vital signs: Vital Signs Temperature 97.2 F L 09/01/22 19:01 Pulse Rate 78 09/01/22 19:01 Respiratory Rate 18 09/01/22 19:01 Blood Pressure 114/79 09/01/22 19:01 Pulse Oximetry 95 09/01/22 19:01 Oxygen Delivery Me thod 09/01/22 19:01 MDM - Chest Pain Medical Decision Making Patient is a 47-year-old male with a history of coronary disease who presents to the ER with complaints of chest pain that was substernal and pressure-like in sensation that started about 2 hours before my exam. His EKG is sinus rhythm without any ischemic ST elevation or depressions here. He was essentially pain- free upon arrival here. Chest x-ray and laboratory work-up was normal with a normal initial troponin. Patient was reassessed and he continues to deny any chest pain. A delta troponin was obtained and there is no significant change between the 2 values. He remains chest pain-free and prefers discharge home and follow-up with his PCP. He was provided strict return precautions for any recurrence of chest pain, shortness of breath, difficulty breathing, or any other concerns. He expresses complete understanding and will return for any new or worsening symptoms. Differential Diagnosis Likely acute massive pulmonary embolism, acute respiratory failure, acute myocardial infarction, cardiac arrest and sudden cardiac Lab Data 09/01/22 19:15 09/01/22 19:15 Radiology Impressions Chest X-Ray 09/01/22 19:11 IMPRESSION: Negative chest radiograph. Laboratory Results WBC 9.3 10^3/uL (4.0-10.0) 09/01/22 19:15 RBC 5.46 10^6/uL (4.1-5.3) H 09/01/22 19:15 Hgb 16.0 g/dL (11.7-16.6) 09/01/22 19:15 Hct 48.3 % (42.0-52.0) 09/01/22 19:15 MCV 88.5 fl (80-94) 09/01/22 19:15 MCH 29.3 pg (28.0-34.0) 09/01/22 19:15 MCHC 33.1 g/dL (30.0-36.0) 09/01/22 19:15 RDW 12.6 % (12.1-15.1) 09/01/22 19:15 Plt Count 280 10^3/cmm (130-400) 09/01/22 19:15 MPV 11.1 fL (7.4-10.4) H 09/01/22 19:15 Neut % (Auto) 64.3 % 09/01/22 19:15 Lymph % (Auto) 27.1 % 09/01/22 19:15 Bennett % (Auto) 6.2 % 09/01/22 19:15 Eos % (Auto) 1.8 % 09/01/22 19:15 Baso % (Auto) 0.4 % 09/01/22 19:15 Neut # (Auto) 5.97 10^3/uL (1.8-7.7) 09/01/22 19:15 Lymph # (Auto) 2.5 10^3/uL (0.8-4.8) 09/01/22 19:15 Bennett # (Auto) 0.6 10^3/uL (0.2-0.9) 09/01/22 19:15 Eos # (Auto) 0.2 10^3/uL (0.0-0.8) 09/01/22 19:15 Baso # (Auto) 0.0 10^3/uL (0.0-0.1) 09/01/22 19:15 Nucleated RBC % (auto) 0 % 09/01/22 19:15 Nucleated RBCs # 0.0 /100WBC 09/01/22 19:15 Sodium 138 mmol/L (136-145) 09/01/22 19:15 Potassium 4.0 mmol/L (3.5-5.1) 09/01/22 19:15 Chloride 102 mmol/L (98-107) 09/01/22 19:15 Carbon Dioxide 22 mmol/L (22-29) 09/01/22 19:15 Anion Gap 18.0 (5-19) 09/01/22 19:15 BUN 13 mg/dL (6-20) 09/01/22 19:15 Creatinine 0.9 mg/dL (0.7-1.2) 09/01/22 19:15 GFR Calculation 89.7 mL/min (90-130) L 09/01/22 19:15 Glucose 167 mg/dL (65-115) H 09/01/22 19:15 Calculated Osmolality 290 mOsm/kg (285-295) 09/01/22 19:15 Calcium 10.0 mg/dL (8.5-10.5) 09/01/22 19:15 Total Bilirubin 0.3 mg/dL (0.15-1.2) 09/01/22 19:15 AST 36 U/L (0-40) 09/01/22 19:15 ALT 83 U/L (0-41) H 09/01/22 19:15 Alkaline Phosphatase 110 U/L (40-130) 09/01/22 19:15 Troponin T Baseline 6 ng/L (0-15) 09/01/22 19:15 Troponin T 120 Minute 8.56 ng/L (0-15) 09/01/22 21:13 NT-Pro-B Natriuret Pep 36 pg/mL (0-125) 09/01/22 19:15 Total Protein 7.4 g/dL (6.6-8.7) 09/01/22 19:15 Albumin 4.3 g/dL (3.5-5.2) 09/01/22 19:15 Globulin 3.1 g/dL (1.3-4.6) 09/01/22 19:15 Imaging Data CXR: My impression: No acute findings. No widening of the mediastinum. Radiologist's impression: No acute findings EKG Data EKG 1: Other EKG comments: Sinus rhythm with sinus arrhythmia. Rate of [address] elevation or depressions. Normal QRS complexes. Discharge Plan Discharge Patient Disposition: Home Clinical Impression: Chest pain Condition: Stable Prescriptions: No Action zinc 50 mg tablet 50 mg PO DAILY omega 1-nun-rrv-fish oil [Fish Oil] 1,000 mg (120 mg-180 mg) capsule 1 cap PO DAILY Qty: 90 3RF nitroglycerin 0.4 mg tablet, sublingual 0.4 mg sublingual Q5M PRN (Reason: chest pain) Qty: 25 2RF Rx Instructions: do not exceed 3 doses per episode atorvastatin 40 mg tablet 80 mg PO BEDTIME Qty: 90 3RF clopidogrel 75 mg tablet 75 mg PO DAILY Qty: 90 2RF lisinopril 10 mg tablet 10 mg PO DAILY Qty: 90 3RF metformin 500 mg tablet 500 mg PO BID Qty: 60 0RF Rx Instructions: Patient needs to find pcp to continue Rx Vitamin C 500 mg Tablet 1,000 mg PO DAILY@05 Discharge Orders: Discharge ED (Routine); Ordered 09/01/22 Ordered By: Micah Segundo Patient Instructions: Opioid Safety, Pain Management Activity Restrictions/Additional Instructions: Continue home medications as prescribed. Contact your primary care provider for follow-up in clinic this week and discuss your chest pain that occurred today. Return to the ER for any recurrence of chest pain, difficulty breathing, shortness of breath, or any other concerns. Coding Level of Care Code ED Rn Heart for Brad Wilder
[2022-09-01] MEDS: aspirin 81 mg Chew Tablet 324 MG PO (19:26)
[2022-09-01 19:43] LABS: Basophils % 0.4 %; Eosinophils # 0.2 10^3/uL (0.0-0.8); Eosinophils % 1.8 %; Hematocrit 48.3 % (42.0-52.0); Lymphocytes # 2.5 10^3/uL (0.8-4.8); Lymphocytes % 27.1 %; Mean Corpuscular HGB Conc 33.1 g/dL (30.0-36.0); Mean Corpuscular Hemoglobin 29.3 pg (28.0-34.0); Mean Corpuscular Volume 88.5 fl (80-94); Mean Platelet Volume 11.1 fL (7.4-10.4); Monocytes # 0.6 10^3/uL (0.2-0.9); Monocytes % 6.2 %; Neutrophils # 5.97 10^3/uL (1.8-7.7); Neutrophils % 64.3 %; Nucleated Red Blood Cells % 0 %; Platelet Count 280 10^3/cmm (130-400); Red Blood Count 5.46 10^6/uL (4.1-5.3); Red Cell Distribution Width 12.6 % (12.1-15.1); White Blood Count 9.3 10^3/uL (4.0-10.0)
[2022-09-01 20:14] LABS: Troponin(5th) Baseline 6 ng/L (0-15)
[2022-09-01 20:22] LABS: Alanine Aminotransferase 83 U/L (0-41); Albumin Level 4.3 g/dL (3.5-5.2); Alkaline Phosphatase 110 U/L (40-130); Aspartate Amino Transferase 36 U/L (0-40); Blood Urea Nitrogen 13 mg/dL (6-20); Carbon Dioxide 22 mmol/L (22-29); Chloride 102 mmol/L (98-107); Globulin 3.1 g/dL (1.3-4.6); Glomerular Filtration Rate 89.7 mL/min (90-130); Glucose 167 mg/dL (65-115); NT Pro B Type Natriuretic Pept 36 pg/mL (0-125); Osmolality Calculated 290 mOsm/kg (285-295); Sodium 138 mmol/L (136-145); Total Bilirubin 0.3 mg/dL (0.15-1.2); Total Protein 7.4 g/dL (6.6-8.7)
--- NOTE | 2022-09-01 20:56 | ECG_ITS ---
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 [id number]
[2022-09-01 21:40] LABS: Troponin 5 2HR 8.56 ng/L (0-15)
[2022-09-01 21:51] LABS: Troponin 5 2HR Delta 2.56 ABS# (0-10)
[2022-09-01 22:09] VITALS: BP 94/70; PULSE 76; RESP 20; O2SAT 96
== END 2022-09-01 22:10 | disposition home or self-care (01) ==
PROVIDERS: Emergency Provider Student in an Organized Health Care Education/Training Program
DX: R07.9 Chest pain, unspecified (principal); Z79.02 Long term (current) use of antithrombotics/antiplatelets; Z79.84 Long term (current) use of oral hypoglycemic drugs; I25.10 Atherosclerotic heart disease of native coronary artery without angina pectoris; E11.9 Type 2 diabetes mellitus without complications; E78.5 Hyperlipidemia, unspecified; I10 Essential (primary) hypertension; I25.2 Old myocardial infarction; F17.220 Nicotine dependence, chewing tobacco, uncomplicated
CPT/HCPCS: 12345; 36415; 71045; 80053; 83880; 84484; 85025; 93005; 99285